=== PATIENT | male | born 1970 | race Caucasian/White ===

== ENCOUNTER 2018-04-13 20:58 | Emergency (ER) | payer BC ==
[~2018-04-13] VITALS: Ht 193 cm; Wt 104.3 kg
[2018-04-13 21:04] VITALS: BP 122/72
== END 2018-04-13 21:43 | disposition home or self-care (01) ==
LOC: ER 21:10
DX: S61.215A Laceration without foreign body of left ring finger without damage to nail, initial encounter (principal); W26.0XXA Contact with knife, initial encounter; Y93.89 Activity, other specified; Y92.89 Other specified places as the place of occurrence of the external cause; Y99.8 Other external cause status
CPT/HCPCS: A6402